=== PATIENT | female | born 2000 | race Hispanic/Latino ===

== ENCOUNTER 2024-05-23 17:43 | Emergency (ER) | payer OTHER, SELFPAY ==
[2024-05-23 17:44] VITALS: BP 119/70
--- NOTE | 2024-05-23 20:16 | ED.GENMED ---
History of Present Illness
General
Chief Complaint: Musculo-Skeletal Complaint
Source: patient
Exam Limitations: none
Time Seen by Provider: 05/23/24 19:57
History of Present Illness
History of Present Illness:
24yoF with a history of a prior R ACL surgery last year presenting for evaluation of right knee pain. Patient fell down stairs 2 days ago and landed on her right knee. She states her knee hyperflexed. She has been having pain and swelling in the
knee since then. Pain is worse in the lateral knee and worsens with weightbearing. She had her ACL repaired last year in [facility]. She spoke with her surgeon who told her to get an MRI for evaluation.
Phy Exam
General Physical Exam
General Presentation: well appearing and no apparent distress
General age: appears stated age
General Skin: warm and dry
General Habitus: normal
General Mental: alert
ENT Exam
ENT Exam: normocephalic
Musculoskeletal Exam
Musculoskeletal Exam: other (R knee: Swelling noted without deformity. +Tenderness to lateral joint line. Able to flex to 90 degrees. No obvious joint instability noted. Antalgic gait. 2+ DP pulse and sensation intact.)
Skin Exam
Skin Exam: normal color and warm/dry
Psychiatric Exam
Psychiatric Exam: normal mood/affect
Course
Orders/Labs/Results
Orders:
Orders
05/23/24 17:45
CR Knee- Right 4 Or More View* Urgent
Comment:
Reason For Exam: fall
05/23/24 20:15
Crutches-Treatment ONCE
Knee Immobilizer Right-Treatme ONCE
Vital Signs
Initial and Last Documented VS:
Initial Vital Signs
Temp Pulse Resp BP Pulse Ox
99.5 F 98 16 119/70 100
05/23/24 17:44 05/23/24 17:44 05/23/24 17:44 05/23/24 17:44 05/23/24 17:44
Last Documented Vital Signs
Temp Pulse Resp BP Pulse Ox
99.5 F 98 16 119/70 100
05/23/24 17:44 05/23/24 17:44 05/23/24 17:44 05/23/24 17:44 05/23/24 17:44
MDM/Problems Addressed
Differential Diagnosis Includes:
24yoF here with R knee pain after falling on the steps 2 days ago. Hx of R ACL surgery 1 year ago. Joint effusion noted on exam. No obvious joint instability noted. RLE is neurovascularly intact. Differential diagnosis includes but is not
limited to: Ligamentous injury, meniscus injury, fracture, no clinical signs of septic arthritis
X-rays obtained which are negative per my interpretation. There is a large suprapatellar joint effusion noted. Discussed with patient that we are unable to obtain a knee MRI in the ED setting. Knee immobilizer and crutches given. Supportive care
discussed. Advised follow-up with orthopedics for further care.
*Critical Care Note
Total Time (30-74mins, 75-104mins- exclusive of procedures): Not Applicable
ED Attending Note
-
Portions of this chart may have been created with voice recognition software.� Occasional wrong word or��sound alike� substitutions may have occurred due to the inherent limitations of voice recognition software.
Discharge Plan
Departure
Patient Disposition: Home (Routine Discharge)
Date of Disposition: 05/23/24
Time of Disposition: 20:17
Patient with high blood pressure during this ER visit?: No
Discharge Problem:
Injury of right knee
Instructions: Knee Immobilizer (DC), Knee Pain (DC)
Referrals:
Dandre Montero MD [Active] -
NONE,* [Family Provider] -
Activity Restrictions/Additional Instructions:
Rest, ice, compress, and elevate your knee. Take ibuprofen as needed. Wear immobilizer and use crutches as needed.
Please call tomorrow to schedule a follow-up with orthopedics.
Interventions
Interventions:
*Risk Screen - Suicide Last Done: 05/23/24 17:44
*General Assessment Last Done: 05/23/24 17:44
*Neglect/Abuse Screening Last Done: 05/23/24 19:06
*ED- Fall Risk Assessment Last Done: 05/23/24 17:44
*ED COVID-19 Vaccine History Last Done: 05/23/24 17:44
*Nursing Disposition Last Done: 05/23/24 20:22
ED-Musculoskeletal Assessment Last Done: 05/23/24 19:06
Discharge Date and Time
Discharge Date/Time: 05/23/24 20:46
Print Language: RWANDAN
== END 2024-05-23 20:46 | disposition home or self-care (01) ==
LOC: EMR 17:43
PROVIDERS: EMERGENCY PHYSICIAN Emergency Medicine
DX: S89.91XA Unspecified injury of right lower leg, initial encounter (principal); W10.9XXA Fall (on) (from) unspecified stairs and steps, initial encounter
CPT/HCPCS: 29505; 99283; 73564